=== PATIENT | male | born 1975 | race Caucasian/White ===

== ENCOUNTER → 2018-09-24 | Day surgery (SDC) | payer OTHER ==
[2018-09-22 15:54] LABS: BASOPHILS # (AUTO) 0.1 (0.0-0.1); BASOPHILS % 1.1 % (0.0-1.0); EOSINOPHILS # (AUTO) 0.2 (0.0-0.4); HEMATOCRIT 53.5 % (38.2-49.6); LYMPHOCYTES # (AUTO) 2.2 (1.0-3.2); LYMPHOCYTES % 25.8 % (18.0-39.1); MEAN CORPUSCULAR HEMOGLOBIN 28.2 pg (28-32); MEAN CORPUSCULAR HGB CONC 31.8 g/dL (31-35); MEAN CORPUSCULAR VOLUME 88.9 fL (81-99); MONOCYTES # (AUTO) 0.6 (0.2-0.8); MONOCYTES % 7.3 % (4.4-11.3); NEUTROPHILS # (AUTO) 5.3 (2.1-6.9); NEUTROPHILS % 63.7 % (38.7-80.0); PLATELET COUNT 196 x10e3/uL (140-360); RED BLOOD COUNT 6.02 x10e6/uL (4.3-5.7); RED CELL DISTRIBUTION WIDTH 13.5 % (11.7-14.4)
[2018-09-22 16:17] LABS: ALANINE AMINOTRANSFERASE 40 IU/L (0-55); ALBUMIN 4.3 g/dL (3.5-5.0); ALBUMIN/GLOBULIN RATIO 1.2 (0.8-2.0); ALKALINE PHOSPHATASE 62 IU/L (40-150); ANION GAP 17.2 mmol/L (8-16); BLOOD UREA NITROGEN 11 mg/dL (7-26); BUN/CREATININE RATIO 13 (6-25); CALCIUM 9.5 mg/dL (8.4-10.2); CARBON DIOXIDE 22 mmol/L (22-29); CHLORIDE 103 mmol/L (98-107); CREATININE, SERUM 0.87 mg/dL (0.72-1.25); EST GLOMERULAR FILTRATION RATE > 60 ML/MIN (60-); GLUCOSE 94 mg/dL (74-118); POTASSIUM 4.2 mmol/L (3.5-5.1); SODIUM 138 mmol/L (136-145)
[2018-09-24] VITALS (8 sets, daily range): BP systolic 107–147; BP diastolic 66–96
[~2018-09-24] VITALS: Ht 190.5 cm; Wt 156.0 kg
[~2018-09-24] MED LIST: FENTANYL CITRATE/PF 100MCG/2 ML INJ ONE; HEPARIN SOD (PORCINE) 1000 UNIT/ML 30ML ONE; HEPARIN SOD/SOD CHLORIDE 2,000 ML ONE; IOPAMIDOL 370 MG/ML 200 ML INFUS..BTL INJ ONE; LIDOCAINE HCL 2% LOCAL 20 ML VIAL ONE; LIPITOR20 MG PO; METFORMIN HCL500 MG PO; MIDAZOLAM HCL 2 MG/2 ML VIAL ONE; NITROGLYCERIN/D5W 200 MCG/ML 250 ML ONE; SODIUM CHLORIDE 0.9% 1000ML 1,000 ML ONE; VERAPAMIL HCL 2.5 MG/ML 2 ML VIAL ONE; VICTOZA 2-0.6 MG/0.1 SC
--- OUTSIDE RECORDS SUMMARY | 2018-09-24 06:00 | XMS REPORT | Clinical Summary ---
Author Author [facility] Organization [facility] Address Unknown Phone Unavailable Care Team Providers Care Inspector [employer] Name Role Phone Maximus Dennis MD PCP Allergies Comments Active Allergy Reactions Severity Noted Date Irwewjth-Uvkmxcmxur-Nxgxd 05/19/2017 yxin Medications End Date Status Medication Sig Dispensed Refills Start Date Active atorvastatin (LIPITOR) 20 TK 1 T PO QD 1 MG tablet 8 Active cholecalciferol, vitamin 0 D3, 50,000 unit capsule 8 Active hydrocortisone 2.5 % USAMA BID PRF 0 lotion FLAKY RASH ON 8 FACE Active metFORMIN (GLUCOPHAGE) TK 1 T PO 0 500 mg tablet BID WITH 8 MEALS Active BYSTOLIC 5 mg tablet TK 1 T PO QD 2 8 Active Problems Problem Noted Date Ureteral stone 05/19/2017 Family History Medical History Relation Name Comments Hyperlipidemia Father Hypertension Father Diabetes Mother pre diabetic Hypertension Mother Relation Name Status Comments Father Alive Mother Alive Social History Date Tobacco Use Types Packs/Day Years Used Current Some Day Smoker Smokeless Tobacco: Current User Alcohol Use Drinks/Week oz/Week Comments Yes Sex Assigned at Date Recorded Not on file Industry Job Start Date Occupation Not on file Not on file Not on file Travel End Travel History Travel Start No recent travel history available. Last Filed Vital Signs Not on file Plan of Treatment Health Maintenance Due Date Last Done Comments INFLUENZA VACCINE 09/23/2018 Results Not on fileafter 09/23/2017 Insurance Type Payer Benefit Subscriber ID Effective Phone Address Plan / Dates Group HMO/PPO [facility] xxxxxxxxx 2017-P THCARE resent CHOICE/CHO ICE + Advance Directives Patient has advance care planning documents on file. For more information, vangie kennedy contact: Anival Malhotra [address] [place] [address]
--- NOTE | 2018-09-24 08:30 | NUR ---
0830a Bedside report received from Marcin HUGGINS. Identiferx2 [facility] Dx stentx1 Dr Licona.Rt TR band approach ok remove at 910am. Alert oriented and appropriate, PERRLA, respirations even and unlabored to room air. Pulses x4 extremities equal and strong. Pedal pulses PT/DP X4. Cap fill brisk < 3 sec. Skin warm and dry integrity appears. IV 20g to left hand, presents healthy w/o s/s of infiltration or complaint. Abdomen soft and supple. pt offered toileting, denies need to urinate or defecate. No personal affects with patient. Family at bedside. Pt and family verbalizes understanding of POC. Currently w/o complaint of pain or need. ds/rn
--- NOTE | 2018-09-24 09:10 | NUR ---
0910amRADIAL Compression removal: Initial Cuff volume 13 cc 910am -2cc Removed No hematoma/bleeding noted with normal neurovascular function. 925 -2 cc Removed No hematoma/ bleeding noted with normal neurovascular function. Air removal completed. Stasis achieved sterile 2x2,Tegaderm, Coban dressing No hematoma, bleeding noted with normal neurovascular function. Wrist splint in place. Pt instructed on POC. Ds/Rn
--- NOTE | 2018-09-24 09:30 | NUR ---
0930 Pt meets DC criteria Rt Tr band site assessed for s/s of complication and presence of hematoma. warm, dry, no discolor, and pulses present. IV removed from let hand. Distal tip appears intact. VS WNL. Pt denies pain, sob, or need at this time. Family at bedside. Review of discharge paperwork and follow up instructions. verbalized understanding. Pt to wheelchair and transported to front of hospital. Transferred to private vehicle under own strength w/o incident with DC paperwork in hand. - ds/rn
--- NOTE | 2018-09-24 14:47 | Operative Report ---
DATE OF PROCEDURE: 09/24/2018 SURGEON: Khadar Licona MD INDICATION FOR PROCEDURE: Chest pain. Positive stress test. PREPROCEDURE ASSESSMENT: The risks, benefits, and alternatives to the treatment were explained to the patient prior to the procedure. The patient was deemed to be an appropriate candidate for moderate sedation. Informed consent was obtained and documented in the medical record. MEDICATIONS: Please see nursing notes for medications administered during the procedure. PROCEDURES PERFORMED: 1. Coronary angiography, right radial approach. 2. Left heart catheterization. PROCEDURE DETAILS: The patient was brought to the cardiac catheterization laboratory in a fasting state. Right wrist was prepped and draped in sterile fashion. A 6-Thai Slender sheath was inserted in the right radial artery using modified Seldinger technique. Coronary angiography was performed using 5-Thai Patricia radial catheter. Left heart catheterization was performed using a 5-Thai pigtail catheter. All catheters were removed over a wire. Access site was closed using a TR band device ended without any significant complication. SIGNIFICANT FINDINGS: No significant coronary artery disease noted. The patient has right dominant coronary system with very, very large RCA that gives off a large right PDA blood supply to apex as well as large RPL system. 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 This is the likely cause of positive apical ischemia on the stress test. However, there is no obstructive CAD noted. ESTIMATED BLOOD LOSS: 20 mL. GRAFTS AND IMPLANTS: None. SPECIMEN REMOVED: None. COMPLICATIONS: None. FINAL RECOMMENDATIONS: 1. Continue optimal medical therapy and risk factor control. 2. Follow up in clinic 2 weeks post procedure. Khadar Licona MD KVP/MODL /[id number]
== END | disposition home or self-care (01) ==
LOC: CATH LAB 05:54
PROVIDERS: ATTEND Internal Medicine
DX: I25.118 Atherosclerotic heart disease of native coronary artery with other forms of angina pectoris (principal); R94.39 Abnormal result of other cardiovascular function study; I44.1 Atrioventricular block, second degree; E66.01 Morbid (severe) obesity due to excess calories; G47.33 Obstructive sleep apnea (adult) (pediatric); Z01.812 Encounter for preprocedural laboratory examination; Z79.84 Long term (current) use of oral hypoglycemic drugs; Z68.42 Body mass index [BMI] 45.0-49.9, adult; Z82.49 Family history of ischemic heart disease and other diseases of the circulatory system
CPT/HCPCS: 36415; 80053; 85025; 93458; C1887; J1644; J2001; J2250; J3010; J7030; Q9967